=== PATIENT | female | born 1960 | race Caucasian/White ===

== ENCOUNTER 2017-09-01 06:42 | Day surgery (SDC) | payer MEDICARE ==
[~2017-09-01 06:42] MED LIST: FISH OIL1000 M2 PO; GABAPENTIN300 M2 PO; LEVEMIR FL100 UNIT/M SC; LEVEMIR100 UNIT/M SC; LORTAB 10-325 M1 TAB PO; METFORMIN1000 MG PO; METFORMIN500 M1 PO; PRAVASTATIN80 MG PO; ZESTRIL10 M1 PO
[2017-09-01 10:02] VITALS: BP 118/79
== END 2017-09-01 10:01 | disposition home or self-care (01) ==
LOC: ENDO 06:42 → ORM 08:30 → ENDO 08:30
PROVIDERS: ATTEND Internal Medicine Gastroenterology
PROC: 0DBP8ZX Excision of Rectum, Via Natural or Artificial Opening Endoscopic, Diagnostic (ICD-10-PCS; principal; 2017-09-01)
PROC: 0DBN8ZX Excision of Sigmoid Colon, Via Natural or Artificial Opening Endoscopic, Diagnostic (ICD-10-PCS; 2017-09-01)
DX: K59.00 Constipation, unspecified (principal); K57.90 Diverticulosis of intestine, part unspecified, without perforation or abscess without bleeding; D12.5 Benign neoplasm of sigmoid colon; D12.8 Benign neoplasm of rectum; K64.4 Residual hemorrhoidal skin tags; K62.89 Other specified diseases of anus and rectum; K64.8 Other hemorrhoids; K62.5 Hemorrhage of anus and rectum; I10 Essential (primary) hypertension; E11.9 Type 2 diabetes mellitus without complications; Z86.010 Personal history of colon polyps